=== PATIENT | male | born 1970 | race Hispanic/Latino ===

== ENCOUNTER 2016-10-31 16:02 | Inpatient (IN) | payer MEDICAID, MEDICARE ==
--- NOTE | 2016-10-31 16:21 | ED PDOC ---
HPI: General Adult Time Seen by Provider: 10/31/16 16:18 Chief Complaint (Nursing): Chest Pain Chief Complaint (Provider): chest pain History Per: Patient History/Exam Limitations: no limitations Additional Complaint(s): 46yo male w/ Hx Lupus, coronary stents comes to the ED for complaint of left side chest pain. Also reports left arm, left shoulder. Describes pain as sharp and intermittent, since last night. He feels lightheaded with the pain but no nausea or shortness of breath. States he was not doing anything at onset. States he has history of IA, last occurring in 2008. Past Medical History Reviewed: Historical Data, Nursing Documentation, Vital Signs Vital Signs: Last Vital Signs Temp 97.9 F 10/31/16 16:11 Pulse 94 H 10/31/16 17:31 Resp 16 10/31/16 16:11 BP 125/93 H 10/31/16 16:11 Pulse Ox 99 10/31/16 17:31 - Medical History PMH: Atrial Fibrillation (Pt states he thinks he was told he had a-fib but is not certain.), CAD, Diverticulitis, HTN, Hypercholesterolemia, Hyperlipidemia Other PMH: Lupus - Surgical History Surgical History: Coronary Stent (x6) - Family History Family History: States: Unknown Family Hx - Social History Current smoker - smoking cessation education provided: Yes ("when I drink") Alcohol: Occasional Drugs: Denies - Home Medications Home Medications: Ambulatory Orders Medication Instructions Recorded Clopidogrel [Plavix] 75 mg PO DAILY 02/06/15 Aspirin [Aspirin EC] 325 mg PO DAILY 10/31/16 Atorvastatin [Lipitor] 20 mg PO DAILY 10/31/16 Elviteg/Marissa/Emtric/Tenofo Ala 1 tab PO HS 10/31/16 [Genvoya Tablet] Losartan [Cozaar] 100 mg PO DAILY 10/31/16 Multivitamin [Multi-Vitamin Daily] 1 tab PO DAILY 10/31/16 - Allergies Allergies/Adverse Reactions: Allergies Allergy/AdvReac Type Severity Reaction Status Date / Time No Known Allergies Allergy Verified 10/31/16 16:10 Review of Systems ROS Statement: Except As Marked, All Systems Reviewed And Found Negative Cardiovascular: Positive for: Chest Pain, Light Headedness Respiratory: Negative for: Shortness of Breath Gastrointestinal: Negative for: Nausea Physical Exam - Reviewed Nursing Documentation Reviewed: Yes Vital Signs Reviewed: Yes - Physical Exam Appears: Positive for: Well, Non-toxic, No Acute Distress Head Exam: Positive for: ATRAUMATIC, NORMAL INSPECTION, NORMOCEPHALIC Skin: Positive for: Warm, Dry Eye Exam: Positive for: EOMI, PERRL Cardiovascular/Chest: Positive for: Regular Rate, Rhythm Respiratory: Positive for: Normal Breath Sounds. Negative for: Rales, Rhonchi, Wheezing Gastrointestinal/Abdominal: Positive for: Soft. Negative for: Tenderness Extremity: Positive for: Normal ROM Neurologic/Psych: Positive for: Alert, Oriented - Laboratory Results Result Diagrams: 10/31/16 16:28 10/31/16 16:46 - ECG ECG: Positive for: Interpreted By Me, Viewed By Me ECG Rhythm: Positive for: Sinus Rhythm. Negative for: ST/T Changes Rate: 94 O2 Sat by Pulse Oximetry: 99 (RA) Pulse Ox Interpretation: Normal - Radiology X-Ray: Interpreted by Me X-Ray Interpretation: No Acute Disease - Physician Consult Information Physician Contacted: Benitez Levine Outcome Of Conversation: ASA, O2, will evaluate pt in ED, admit to tele. Medical Decision Making Medical Decision Makin Impression chest pain Plan: -Labs -EKG -CXR -reassess Disposition - Clinical Impression Clinical Impression: Non-ST elevation (NSTEMI) myocardial infarction - Patient ED Disposition Is Patient to be Admitted: Yes - Disposition Disposition Time: 17:45 Condition: STABLE - Pt Status Changed To: Hospital Disposition Of: Inpatient - Admit Certification Admit to Inpatient:: After my assessment, the patient will require hospitalization for at least two midnights. This is because of the severity of symptoms shown, intensity of services needed, and/or the medical risk in this patient being treated as an outpatient. - POA Present On Arrival: None Additional Comments - Additional Comments Additional Comments: Scribe Attestation: Documented by Shoaib Doll acting as a scribe for Yumiko Lin MD Provider Scribe Attestation: All medical record entries made by the Scribe were at my direction and personally dictated by me. I have reviewed the chart and agree that the record accurately reflects my personal performance of the history, physical exam, medical decision making, and the department course for this patient. I have also personally directed, reviewed, and agree with the discharge instructions and disposition.
[2016-10-31 16:52] LABS: BASO # 0.1 K/uL (0.0-0.2); BASO % 0.8 % (0.0-2.0); EOS # 0.1 K/uL (0.0-0.7); EOS % 1.9 % (0.0-4.0); HEMATOCRIT 46.4 % (35.0-51.0); LYMPH # 2.1 K/uL (1.0-4.3); LYMPH % 29.5 % (20.0-40.0); MEAN CELL VOLUME 91.6 fl (80.0-94.0); MEAN CORPUSCULAR HEMOGLOBIN 30.9 pg (27.0-31.0); MEAN CORPUSCULAR HGB CONC 33.7 g/dL (33.0-37.0); MEAN PLATELET VOLUME 7.9 fl (7.2-11.7); MONO # 0.8 K/uL (0.0-0.8); MONO % 10.8 % (0.0-10.0); RED CELL DISTRIBUTION WIDTH 15.2 % (11.5-14.5)
[2016-10-31 17:01] LABS: ALB/GLOB RATIO 1.2 (1.0-2.1); ALKALINE PHOSPHATASE 90 U/L (38-126); ALT/SGPT 45 U/L (21-72); AST/SGOT 54 U/L (17-59); BILIRUBIN,TOTAL 0.8 mg/dl (0.2-1.3); BLOOD UREA NITROGEN 16 mg/dl (9-20); CALCIUM 9.9 mg/dL (8.4-10.2); CARBON DIOXIDE 22 mmol/L (22-30); CHLORIDE 106 mmol/L (98-107); GFR AFRICAN-AMERICAN > 60; GLUCOSE,RANDOM 98 mg/dL (75-110); POTASSIUM 4.9 MMOL/L (3.6-5.0); SODIUM 135 mmol/l (132-148); TOTAL PROTEIN 8.2 G/DL (6.3-8.2)
[2016-10-31] MEDS ORDERED: Nitroglycerin 2% 1GM UD ONE (17:44)
[2016-10-31] MEDS ORDERED: Nitroglycerin 2% 1GM UD TOP STA (17:47)
--- NOTE | 2016-10-31 19:42 | CP.PCM.CON ---
History of Present Illness - History of Present Illness History of Present Illness: THE PATIENT IS A 46 YEAR OLD MALE WHO HAS A HISTORY OF CAD WITH A NON STEMI IN 2006 FOLLOWED BY A CARDIAC CATH AND CORONARY STENT INSERTIONS BY DR DIANE AT [facility]. HE STATES HE HAD A SECOND NON STEMI IN 2008 AND HAD ANOTHER CARDIAC CATH WITH MORE CORONARY STENT INSERTIONS AT [facility] IN [place], [place] IN 2008. HE HAS BEEN OK SINCE THEN AND HAD A NEGATIVE NUCLEAR STRESS TEST IN AUGUST OF THIS YEAR. HE NOW STATES THAT HE HAS HAD CHEST PAIN ON AND OFF SINCE 10 PM LAST NIGHT(21 HOURS) LASTING UP TO 20 MINUTES THAT HE DESCRIBES BOTH A BURNING AND SHARP PAIN IN THE LEFT CHEST AND LEFT ARM. HE DENIES SOB, PALPITATIONS, NAUSEA OR VOMITING. HE CAME TO THE ER WHERE THE FIRST EKG WAS NORMAL BUT THE FIRST TROPONIN WAS MILDLY ELEVATED SO CARDIOLOGY WAS CALLED TO SEE HIM. HE STATES THAT HIS PAIN IN 2008 WITH HIS NON STEMI WAS THE SAME. HE ALSO HAS A HISTORY OF HYPERTENSION, HYPERLIPIDEMIA AND LUPUS. IT IS OF NOTE THAT HE HAD TO STOP BETA BLOCKERS BECAUSE THEY WERE CAUSING HIS FINGERS TO GET COLD AND NUMB. THE PATIENT TOOK HIS MEDICINES TODAY. Past Patient History - Past Social History Alcohol: Occasional Drugs: Denies - CARDIAC Hx Atrial Fibrillation: Yes (Pt states he thinks he was told he had a-fib but is not certain.) Hx Hypercholesterolemia: Yes Hx Hypertension: Yes - ENDOCRINE/METABOLIC Hx Systemic Lupus Erythematosus: Yes - GASTROINTESTINAL Hx Diverticulitis: Yes - PSYCHIATRIC Hx Substance Use: No - SURGICAL HISTORY Hx Coronary Stent: Yes (x6) - ANESTHESIA Hx Anesthesia: Yes Meds Allergies/Adverse Reactions: Allergies Allergy/AdvReac Type Severity Reaction Status Date / Time No Known Allergies Allergy Verified 10/31/16 16:10 Physical Exam - Respiratory Exam Respiratory Exam: Clear to Auscultation Bilateral - Cardiovascular Exam Cardiovascular Exam: REGULAR RHYTHM, +S1, +S2 - Extremities Exam Additional comments: NO SIGNIFICANT LE EDEMA - Additional Findings Additional findings: EKG NSR TROPONIN # 1 0.1360 Results - Vital Signs Recent Vital Signs: Last Vital Signs Temp 98.1 F 10/31/16 18:23 Pulse 69 10/31/16 18:23 Resp 16 10/31/16 18:23 BP 124/84 10/31/16 18:23 Pulse Ox 99 10/31/16 18:23 - Labs Result Diagrams: 10/31/16 16:28 10/31/16 16:46 Assessment & Plan - Assessment and Plan (Free Text) Assessment: PROBABLE NON STEMI. HISTORY OF CAD WITH 2 PRIOR NON STEMIS AND CORONARY STENT INSERTIONS HYPERTENSION HYPERLIPIDEMIA LUPUS Plan: O2, ASPIRIN, PLAVIX, LOVENOX, METOPROLOL, NITROPASTE, ATORVASTATIN, TYLENOL FOR HEADACHE, MS FOR TORADOL FOR CHEST PAIN SERIAL TROPONINS AND EKGS, ECHOCARDIOGRAM THE PATIENT WAS ADVISED TO HAVE A REPEAT CARDIAC CATH AND HE STATED THAT HE WOULD LIKE TO GO TO [facility] AGAIN AND HAVE A CARDIAC CATH BY DR DIANE AGAIN-I SPOKE TO DR DIANE ABOUT DOING AN URGENT CARDIAC CATH TONIGHT DUE TO THE HISTORY AND AND SIMILAR CHEST PAIN HIS LAST NON STEMI BUT HE STATED THAT THE MANAGER FOREIGN IS CLOSED DUE TO THE IMPENDING SNOW STORM TOMORROW AND THAT IT COULDN'T BE DONE UNTIL MONDAY AT THE [facility]-THE PATIENT IS AGREEABLE FURTHER TREATMENT PER CLINICAL COURSE
--- NOTE | 2016-10-31 20:50 | CP.PCM.HP ---
History of Present Illness - History of Present Illness History of Present Illness: 46 yo with hx CAD s/p NSTEMOI angioplasty ?? SLE admitted for chest pain Present on Admission - Present on Admission Any Indicators Present on Admission: No Past Patient History - Past Social History Alcohol: Occasional Drugs: Denies - CARDIAC Hx Atrial Fibrillation: Yes (Pt states he thinks he was told he had a-fib but is not certain.) Hx Hypercholesterolemia: Yes Hx Hypertension: Yes - ENDOCRINE/METABOLIC Hx Systemic Lupus Erythematosus: Yes - GASTROINTESTINAL Hx Diverticulitis: Yes - PSYCHIATRIC Hx Substance Use: No - SURGICAL HISTORY Hx Coronary Stent: Yes (x6) - ANESTHESIA Hx Anesthesia: Yes Meds Allergies/Adverse Reactions: Allergies Allergy/AdvReac Type Severity Reaction Status Date / Time No Known Allergies Allergy Verified 10/31/16 16:10 Physical Exam - Respiratory Exam Respiratory Exam: NORMAL BREATHING PATTERN - Cardiovascular Exam Cardiovascular Exam: REGULAR RHYTHM - GI/Abdominal Exam GI & Abdominal Exam: Normal Bowel Sounds Results - Vital Signs Recent Vital Signs: Last Vital Signs Temp 98.1 F 10/31/16 18:23 Pulse 69 10/31/16 18:23 Resp 16 10/31/16 18:23 BP 124/84 10/31/16 18:23 Pulse Ox 99 10/31/16 18:23 - Labs Result Diagrams: 10/31/16 16:28 10/31/16 16:46 Assessment & Plan - Assessment and Plan (Free Text) Assessment: Chest pain Hx CAD s/p angioplasty s/p NSTEMI Cardiology Telemetry EKG CE HX SLE?? Hx Depression Suicide attempt Psych - Date & Time Date: 10/31/16 Time: 22:22
[2016-10-31] MEDS: Enoxaparin 100 mg Syringe SC SCH (21:53)
[2016-11-01] MEDS: Nitroglycerin 2% 1GM UD TOP SCH ×5 (02:35→21:05)
[2016-11-01] MEDS: Aspirin 325 mg EC Tablets PO SCH (08:44)
[2016-11-01] MEDS: Enoxaparin 100 mg Syringe SC SCH ×2 (08:45→21:02)
--- NOTE | 2016-11-01 08:45 | RAD ---
HISTORY: CP COMPARISON: Comparison is made to the previous study dated 01/22/2016 FINDINGS: LUNGS: No evidence of new infiltrate or consolidation in the lungs. PLEURA: No significant pleural effusion identified, no pneumothorax apparent. CARDIOVASCULAR: Normal. OSSEOUS STRUCTURES: No significant abnormalities. VISUALIZED UPPER ABDOMEN: Normal. OTHER FINDINGS: None. IMPRESSION: No active disease.
[2016-11-01 09:33] LABS: CHOLESTEROL 198 mg/dL (0-199)
--- NOTE | 2016-11-01 15:42 | CP.PCM.PN ---
Subjective - Date & Time of Evaluation Date of Evaluation: 11/01/16 Time of Evaluation: 22:22 - Subjective Subjective: Chest pain + troponin Objective - Vital Signs/Intake and Output Vital Signs (last 24 hours): Temp Pulse Resp BP Pulse Ox 97.6 F 80 18 116/71 100 11/01/16 15:37 11/01/16 15:37 11/01/16 15:37 11/01/16 15:37 11/01/16 15:37 - Medications Medications: Current Medications Acetaminophen (Tylenol 325mg Tab) 650 mg PO Q6 PRN PRN Reason: Headache Aspirin (Ecotrin) 325 mg PO DAILY [facility] Last Admin: 11/01/16 08:44 Dose: 325 mg Atorvastatin Calcium (Lipitor) 40 mg PO HS [facility] Clopidogrel Bisulfate (Plavix) 75 mg PO DAILY [facility] Last Admin: 11/01/16 08:46 Dose: 75 mg Enoxaparin Sodium (Lovenox) 90 mg SC Q12 [facility] PRN Reason: Protocol Last Admin: 11/01/16 08:45 Dose: 90 mg Ketorolac Tromethamine (Toradol) 10 mg PO Q6 PRN PRN Reason: Pain, moderate (4-7) Last Admin: 10/31/16 20:22 Dose: 30 mg Ketorolac Tromethamine (Toradol) 30 mg IM Q6 PRN PRN Reason: Pain, severe (8-10) Metoprolol Tartrate (Lopressor) 50 mg PO Q12 [facility] Last Admin: 11/01/16 08:45 Dose: 50 mg Nitroglycerin (Nitro-Bid 2% Oint) 1 in TOP Q6 [facility] Last Admin: 11/01/16 11:02 Dose: 1 in Nitroglycerin (Nitrostat Sl Tab) 0.4 mg SL Q5M PRN PRN Reason: Pain, Mild (1-3) Last Admin: 11/01/16 11:46 Dose: 0.4 mg - Labs Labs: PT 10.5 SECONDS (9.6-11.2) 10/31/16 16:46 INR 1.01 (0.92-1.08) 10/31/16 16:46 APTT 25.0 SECONDS (23.3-32.5) 10/31/16 16:46 - Respiratory Exam Respiratory Exam: NORMAL BREATHING PATTERN - Cardiovascular Exam Cardiovascular Exam: REGULAR RHYTHM - GI/Abdominal Exam GI & Abdominal Exam: Normal Bowel Sounds Assessment and Plan - Assessment and Plan (Free Text) Assessment: Chest pain + troponin Hx CAD s/p angioplasty s/p NSTEMI D/W Cardiology Telemetry EKG CE HX SLE?? Hx Depression Suicide attempt Psych
--- NOTE | 2016-11-01 16:26 | PQF GENQUE ---
Dr. Thomas, In agreement with dx. of current NSTEMI? OR: Disagree OR: Unable to determine OR: Other explanation of clinical findings ER MD:NSTEMI Cardiology consult; Assessment: PROBABLE NON STEMI. HISTORY OF CAD WITH 2 PRIOR NON STEMIS AND CORONARY STENT INSERTIONS HYPERTENSION HYPERLIPIDEMIA LUPUS Plan: O2, ASPIRIN, PLAVIX, LOVENOX, METOPROLOL, NITROPASTE, ATORVASTATIN, TYLENOL FOR HEADACHE, MS FOR TORADOL FOR CHEST PAIN SERIAL TROPONINS AND EKGS, ECHOCARDIOGRAM THE PATIENT WAS ADVISED TO HAVE A REPEAT CARDIAC CATH AND HE STATED THAT HE WOULD LIKE TO GO TO [facility] AGAIN AND HAVE A CARDIAC CATH BY DR DIANE AGAIN-I SPOKE TO DR DIANE ABOUT DOING AN URGENT CARDIAC CATH TONIGHT DUE TO THEHISTORY AND AND SIMILAR CHEST PAIN HIS LAST NON STEMI BUT HE STATED THAT THE CITY SOLICITOR IS CLOSED DUE TO THE IMPENDING SNOW STORM TOMORROW AND THAT IT COULDN'T BE DONE UNTIL MONDAY AT THE [facility]-THE PATIENT IS AGREEABLE This form is a permanent part of the medical record Clarification of your documentation is requested to better reflect the severity of illness and intensity of treatment of your patient. Indicators present [] Specify: [] [] Specify: [] [] Specify: [] [] Specify: [] Location in the medical record that reflects the above clinical findings: [] Treatment Provided: [] PHYSICIAN'S RESPONSE Based on your medical judgment of the clinical indicators outlined above please clarify the following: [] Practitioner response [] If unable to determine, please check the box, sign and date. Present On Admission (POA) Indicator: [] Present at the time of admission [] Not present at the time of admission [] Clinically Undetermined In responding to this query, please exercise your independent professional judgment. The fact that a question is asked does not imply that any particular answer is desired or expected. Thank you for your clarification on this documentation. If you have any questions please call. * Thank you, Ann Lopez RN BSN ext. #[phone] MTDD
[2016-11-02] MEDS: Nitroglycerin 2% 1GM UD TOP SCH ×2 (04:23→09:52)
[2016-11-02 05:06] VITALS: BP 130/86; PULSE 75; RESP 18; TEMP 97.8; O2SAT 97
[2016-11-02] MEDS: Aspirin 325 mg EC Tablets PO SCH (09:51)
[2016-11-02] MEDS: Enoxaparin 100 mg Syringe SC SCH (09:52)
--- NOTE | 2016-11-02 09:52 | CP.PCM.PCO ---
Physician Communication Note - Physician Communication Note Physician Communication Note: Patient left for a procedure, call for psychiatry consult when he returns
--- NOTE | 2016-11-02 19:09 | CP.PCM.PN ---
Subjective - Date & Time of Evaluation Date of Evaluation: 11/02/16 Time of Evaluation: 22:22 - Subjective Subjective: Pt for cardiac cath Objective - Vital Signs/Intake and Output Vital Signs (last 24 hours): Temp Pulse Resp BP Pulse Ox 97.8 F 75 18 130/86 97 11/02/16 05:05 11/02/16 05:05 11/02/16 05:05 11/02/16 05:05 11/02/16 05:05 - Labs Labs: PT 10.5 SECONDS (9.6-11.2) 10/31/16 16:46 INR 1.01 (0.92-1.08) 10/31/16 16:46 APTT 25.0 SECONDS (23.3-32.5) 10/31/16 16:46 - Respiratory Exam Respiratory Exam: NORMAL BREATHING PATTERN - Cardiovascular Exam Cardiovascular Exam: REGULAR RHYTHM - GI/Abdominal Exam GI & Abdominal Exam: Normal Bowel Sounds Assessment and Plan - Assessment and Plan (Free Text) Assessment: Chest pain + troponin Hx CAD s/p angioplasty s/p NSTEMI cardiac cath Telemetry EKG CE HX SLE?? Hx Depression Suicide attempt Psych
--- NOTE | 2016-11-07 17:22 | CARD ---
APPROVED REPORT EKG Measurement Heart [id number] <Conclusion> Normal sinus rhythm Normal ECG
--- NOTE | 2016-11-07 17:31 | CARD ---
APPROVED REPORT EKG Measurement Heart [id number] [place] [id number] <Conclusion> Normal sinus rhythm Nonspecific ST abnormality Abnormal ECG
== END 2016-11-02 07:30 | disposition short-term general hospital (02) | DRG 282 ==
LOC: H.ER 16:02 → H.ERHOLD 17:36 → H.TEL 20:29
PROVIDERS: ADMIT Family Medicine Geriatric Medicine; ATTEND Family Medicine Geriatric Medicine
DX: I21.4 Non-ST elevation (NSTEMI) myocardial infarction (principal); M32.9 Systemic lupus erythematosus, unspecified; I25.10 Atherosclerotic heart disease of native coronary artery without angina pectoris; I25.2 Old myocardial infarction; Z95.5 Presence of coronary angioplasty implant and graft; I10 Essential (primary) hypertension; E78.00 Pure hypercholesterolemia, unspecified; E78.5 Hyperlipidemia, unspecified; F17.200 Nicotine dependence, unspecified, uncomplicated; I48.91 Unspecified atrial fibrillation; Z79.82 Long term (current) use of aspirin; Z79.02 Long term (current) use of antithrombotics/antiplatelets